=== PATIENT | female | born 1985 | race American Indian/Alaskan Native ===

== ENCOUNTER 2017-02-05 12:08 | Outpatient (CLI) | payer MEDICAID ==
[2017-02-05 12:53] VITALS: BP 106/60
[2017-02-05] MEDS ORDERED: LACTATED RINGERS 500 ML IV ONE (13:58)
== END 2017-02-05 14:08 | disposition home or self-care (01) ==
LOC: TRG 12:08
PROVIDERS: ATTEND Obstetrics & Gynecology
DX: O47.03 False labor before 37 completed weeks of gestation, third trimester (principal); Z3A.28 28 weeks gestation of pregnancy
CPT/HCPCS: 59025